=== PATIENT | male | born 1955 | race Caucasian/White ===

== ENCOUNTER 2025-03-11 09:05 | Day surgery (SDC) | payer MEDICARE ==
[~2025-03-11] VITALS: Ht 162.6 cm; Wt 66.5 kg
[~2025-03-11 09:05] MED LIST: ASPI81TA26 PO; ATOR40TA75 PO; FAMO20TA5 PO; HYDR-3490 PO; JANU50TA25 PO; JARD1TAB PO; LISI10TA22 PO; METO25TA4 PO; MIDAZOLAM INJ 2 MG/2 ML VIAL As Ordered ONE; PHENYLEPHRINE 10% OPHTH SOL 5ML OD PRN; THERTAB52 PO; WARF4TAB51 PO; WARF4TAB52 PO
[2025-03-11] MEDS: TROPICAMIDE 1% OPHTH SOLN 15ML OD SCH (09:24)
[2025-03-11] MEDS: OFLOXACIN 0.3 % (OCUFLOX) OPTH SOL 5ML OD ONE (09:24)
[2025-03-11] MEDS: PHENYLEPHRINE 2.5% OPHTH SOL 2ML OD SCH (09:24)
[2025-03-11] MEDS: CYCLOPENTOLATE 1% OPHTH SOLN 2 ML BTL OD SCH (09:24)
[2025-03-11] MEDS: LIDOCAINE 3.5% 1 ML OPHTH TOPICAL GEL OU ONE (09:24)
[2025-03-11] MEDS: BSS IRRIG/VANCO(10MG)/TOBRA(5MG)/EPINEPH(1:1000-0.5CC)500ML BAG-ORONLY As Ordered ONE (10:01)
[2025-03-11] MEDS: LIDOCAINE 1% SDV 5 ML VIAL As Ordered ONE (10:01)
[2025-03-11] MEDS: CEFUROXIME 1 MG/0.1 ML INTRACAMERAL INJ As Ordered ONE (10:01)
[2025-03-11 10:15] VITALS: BP 104/65; TEMP 97.3; O2SAT 98
== END 2025-03-11 10:29 | disposition home or self-care (01) ==
LOC: M SDC 09:05
PROVIDERS: ATTEND Ophthalmology
DX: E11.36 Type 2 diabetes mellitus with diabetic cataract (principal); H25.11 Age-related nuclear cataract, right eye; I10 Essential (primary) hypertension; I25.10 Atherosclerotic heart disease of native coronary artery without angina pectoris; E78.00 Pure hypercholesterolemia, unspecified; Z79.01 Long term (current) use of anticoagulants; Z79.899 Other long term (current) drug therapy; Z79.82 Long term (current) use of aspirin; Z79.84 Long term (current) use of oral hypoglycemic drugs; Z95.5 Presence of coronary angioplasty implant and graft
CPT/HCPCS: 66984; 92015; J0697; J2250; J3010; V2632